=== PATIENT | female | born 1995 | race Caucasian/White ===

== ENCOUNTER 2023-03-28 18:07 | Outpatient (CLI) | payer OTHER, SELFPAY ==
[2023-03-28 18:46] LABS: Appearance Urine Slightly Cloudy (Clear); Bilirubin Urine Negative (Negative); Blood Urine Negative (Negative); Color Urine Yellow (Yellow); Glucose Urine Negative (Negative); Ketones Urine Trace (Negative); Leukocyte Esterase Urine 1+ (Negative); Nitrite Urine Negative (Negative); Protein Urine Negative (Negative); Specific Gravity Urine 1.015 (1.000-1.030); Urobilinogen Urine 0.2 (0.2-1.0); pH Urine 7.5 (5.0-8.5)
[2023-03-28 18:52] VITALS: BP 116/66; PULSE 101; TEMP 36.8
[2023-03-28 18:59] LABS: Bacteria Urine Few; RBC Urine 0-2 (0-2); Squamous Epithelial Cell Urine Few (None-Few)
[2023-03-28 19:22] LABS: Fetal Fibronectin* Negative (Negative)
[2023-03-28 19:33] LABS: Clue Cells <20% Clue Cells Seen (None Seen); Trichomonas No Trichomonas Seen (None Seen); Yeast No Yeast Seen (None Seen)
--- NOTE | 2023-03-29 15:43 | PC.OBNST ---
NST Note NST Note Start: 03/28/23 18:22 Freq: ONCE Status: Discharge Protocol: Document 03/28/23 21:00 ABP (Rec: 03/29/23 15:43 ABP [id number]) NST Note 1 Para (# of births) 0 EDC 06/03/23 Gestational Age In Weeks & Days 30 Weeks & 4 Days Patient Presented with Complaint(s) of Pain Other Complaints Patient reports having discomfort and painful tightening in random spots of her stomach and back for the last 2 weeks Appropriate for Gestational Age Yes MARGI Lewis, RN Date 03/28/23 Appropriate for Gestational Age Yes MARGI Meredith RN Date 03/28/23 OB NST charge Yes Complete NST Note via Write Note Yes The provider's electronic signature indicates the NST is reactive/appropriate for gestational age. *Note to provider: If an addendum is required, open the patient's chart and click on the note under the Nurse/Allied Health tab.
== END 2023-03-28 20:21 | disposition home or self-care (01) ==
LOC: OB OUT 18:12 → OB 18:12
PROVIDERS: Visit Provider Obstetrics & Gynecology
DX: O47.03 False labor before 37 completed weeks of gestation, third trimester (principal); Z3A.30 30 weeks gestation of pregnancy
CPT/HCPCS: 59025; 81003; 81015; 84112; 87086; 87210; 99213

== ENCOUNTER 2023-05-17 04:33 | Outpatient (CLI) | payer OTHER, SELFPAY ==
[2023-05-17 04:58] VITALS: BP 123/85; PULSE 94
[2023-05-17 04:59] VITALS: RESP 18; TEMP 37
[2023-05-17 05:07] LABS: Appearance Urine Turbid (Clear); Bilirubin Urine Negative (Negative); Blood Urine Negative (Negative); Color Urine Yellow (Yellow); Glucose Urine Negative (Negative); Ketones Urine Negative (Negative); Leukocyte Esterase Urine 1+ (Negative); Nitrite Urine Negative (Negative); Protein Urine Negative (Negative); Specific Gravity Urine 1.025 (1.000-1.030); Urobilinogen Urine 0.2 (0.2-1.0); pH Urine 6.5 (5.0-8.5)
[2023-05-17 05:25] LABS: Bacteria Urine Moderate; Squamous Epithelial Cell Urine Moderate (None-Few)
--- NOTE | 2023-05-17 05:59 | PC.OBNST ---
NST Note NST Note Start: 05/17/23 04:37 Freq: ONCE Status: Active Protocol: Document 05/17/23 05:53 SILVA (Rec: 05/17/23 05:58 SILVA [id number]) NST Note 1 Para (# of births) 0 EDC 06/03/23 Gestational Age In Weeks & Days 37 Weeks & 4 Days Patient Presented with Complaint(s) of Decreased movement Reactive Yes Appropriate for Gestational Age No RN Seamus Llamas RN Date 05/17/23 Reactive Yes MARGI Peterson RN Date 05/17/23 OB NST charge Yes Complete NST Note via Write Note Yes The provider's electronic signature indicates the NST is reactive/appropriate for gestational age. *Note to provider: If an addendum is required, open the patient's chart and click on the note under the Nurse/Allied Health tab.
== END 2023-05-17 05:30 | disposition home or self-care (01) ==
LOC: OB OUT 04:34 → OB 04:36
PROVIDERS: Visit Provider Obstetrics & Gynecology
DX: O36.8130 Decreased fetal movements, third trimester, not applicable or unspecified (principal); Z3A.37 37 weeks gestation of pregnancy
CPT/HCPCS: 59025; 81003; 81015; 87086; 99213